=== PATIENT | female | born 1970 | race Caucasian/White ===

== ENCOUNTER → 2017-04-14 | Outpatient (CLI) | payer OTHER ==
[~2017-04-14] MED LIST: BUSP10TA PO; CITA40TA5 PO; PRIMIDONE PO; TOPIRAMATE PO
== END | disposition home or self-care (01) ==
LOC: STAR 15:43
PROVIDERS: ATTEND Obstetrics & Gynecology Female Pelvic Medicine and Reconstructive Surgery
DX: Z02.9 Encounter for administrative examinations, unspecified (principal)

== ENCOUNTER 2017-04-18 09:26 | Day surgery (SDC) | payer OTHER ==
[~2017-04-18] VITALS: Ht 157.5 cm; Wt 74.0 kg
[~2017-04-18 09:26] MED LIST changes: +BUPIVACAINE/PF-EPI 0.25% 1:200K ONE; +NEOMY/POLYMYXIN B GU IRR. 1 ML IRRIG ONE
[2017-04-18 09:57] VITALS: BP 117/73
[2017-04-18] MEDS ORDERED: LACTATED RINGERS 1,000 ML IV SCH (10:11)
[2017-04-18] MEDS ORDERED: MIDAZOLAM 1 MG/ML, 2ML ONE (10:51)
[2017-04-18] MEDS ORDERED: FENTANYL PF 250 MCG/5ML ONE (10:52)
[2017-04-18] MEDS ORDERED: NEOMY/POLYMYXIN B GU IRR. 1 ML IRRIG ONE (11:30)
[2017-04-18] MEDS ORDERED: PROPOFOL 10 MG/ML, 50ML ONE (11:33)
[2017-04-18] MEDS ORDERED: KETOROLAC 30 MG/1 ML ONE (11:33)
[2017-04-18] MEDS ORDERED: ONDANSETRON 2MG/ML, 2ML ONE (11:33)
[2017-04-18] MEDS ORDERED: CEFAZOLIN 1,000 MG ONE (11:33)
[2017-04-18] MEDS ORDERED: NEOSTIGMINE 1 MG/ML, 10ML ONE (11:33)
[2017-04-18] MEDS ORDERED: DEXAMETHASONE 4 MG/ML, 1ML ONE (11:33)
[2017-04-18] MEDS ORDERED: GLYCOPYRROLATE 0.2MG/1ML ONE (11:33)
[2017-04-18] MEDS ORDERED: BUPIVACAINE/PF-EPI 0.25% 1:200K INFIL ONE (11:45)
[2017-04-18] MEDS ORDERED: OXYcodone 5 MG/5 ML ORAL.SOL UDC PO PRN (12:00)
[2017-04-18] MEDS ORDERED: PROMETHAZINE 25 MG/ML, 1ML IV PRN (12:00)
[2017-04-18] MEDS ORDERED: ALBUTEROL/IPRATROPIUM 2.5MG/0.5MG, 3 ML NPPB PRN (12:00)
[2017-04-18] MEDS ORDERED: ACETAMINOPHEN 325 MG TABLET PO PRN ×2 (12:00→15:00)
[2017-04-18] MEDS ORDERED: FENTANYL PF 100 MCG/2ML ONE ×3 (12:37→13:30)
[2017-04-18] MEDS ORDERED: OXYcodone 5 MG/5 ML ORAL.SOL UDC ONE (13:03)
[2017-04-18] MEDS ORDERED: MEPERIDINE/PF 25MG/0.5ML ONE (13:03)
[2017-04-18] MEDS ORDERED: ACETAMINOPHEN 650 MG/20.3 ML UDC ONE (13:03)
[2017-04-18] MEDS: FENTANYL PF 100 MCG/2ML IV PRN ×4 (13:15→13:37)
[2017-04-18] MEDS ORDERED: MEPERIDINE/PF 25MG/0.5ML IVPush PRN (13:30)
[2017-04-18] MEDS ORDERED: HYDROmorphone 2 MG/ML, 1ML ONE ×2 (14:02→14:52)
[2017-04-18] MEDS ORDERED: HYDROmorphone 1 MG/ML, 1ML IV PRN (14:30)
[2017-04-18] MEDS ORDERED: ZOLPIDEM 5MG TABLET PO PRN (15:00)
[2017-04-18] MEDS ORDERED: HYDROcodone/APAP 5/325 TABLET PO PRN (15:00)
[2017-04-18] MEDS ORDERED: HYDROmorphone 2 MG/ML, 1ML IVPush PRN (15:00)
[2017-04-18] MEDS ORDERED: ONDANSETRON 2MG/ML, 2ML IVPush PRN (15:00)
[2017-04-18] MEDS ORDERED: OXYcodone/APAP 5/325MG TABLET PO PRN (15:00)
[2017-04-18] MEDS ORDERED: IBUPROFEN 600 MG TABLET PO SCH (16:00)
[2017-04-18] MEDS ORDERED: SIMETHICONE 80 MG CHEW TAB PO SCH (16:00)
[2017-04-18] MEDS ORDERED: DOCUSATE 100 MG CAPSULE PO SCH (21:00)
== END 2017-04-18 17:50 | disposition home or self-care (01) ==
LOC: OUT 09:26
PROVIDERS: ATTEND Obstetrics & Gynecology Female Pelvic Medicine and Reconstructive Surgery
DX: N80.0 Endometriosis of uterus (principal); N39.3 Stress incontinence (female) (male); N81.11 Cystocele, midline; N81.6 Rectocele; N81.5 Vaginal enterocele; Z88.2 Allergy status to sulfonamides
CPT/HCPCS: 57265; 57282; 57288; 58552; 88307; C1771; J0690; J1100; J1170; J1885; J2175; J2250; J2405; J2704; J2710; J3010; J7120; J3490

== ENCOUNTER 2017-04-19 14:39 | Emergency (ER) | payer OTHER ==
[~2017-04-19] VITALS: Ht 157.5 cm; Wt 76.5 kg
[~2017-04-19 14:39] MED LIST changes: -BUPIVACAINE/PF-EPI 0.25% 1:200K ONE; -NEOMY/POLYMYXIN B GU IRR. 1 ML IRRIG ONE
[2017-04-19 16:22] LABS: BLOOD UREA NITROGEN 5 mg/dL (7-18)
[2017-04-19 16:27] LABS: ASPARTATE AMINO TRANSFERASE 22 U/L (15-37)
[2017-04-19] MEDS ORDERED: ONDANSETRON 2MG/ML, 2ML IVPush ONE (18:30)
[2017-04-19] MEDS ORDERED: SODIUM CHLORIDE FLUSH 10ML SYR IVF ONE (18:30)
[2017-04-19] MEDS ORDERED: HYDROmorphone 1 MG/ML, 1ML IVPush PRN (18:30)
[2017-04-19] MEDS ORDERED: HYDROmorphone 1 MG/ML, 1ML ONE (18:39)
[2017-04-19] MEDS ORDERED: ONDANSETRON 2MG/ML, 2ML ONE (18:39)
[2017-04-19] MEDS ORDERED: OMNIPAQUE 350 MG/ML, 100ML BOTTLE ONE (19:21)
[2017-04-19 19:55] VITALS: BP 100/48
== END 2017-04-19 20:58 | disposition home or self-care (01) ==
LOC: ED 20:52
DX: R10.2 Pelvic and perineal pain (principal); Z90.710 Acquired absence of both cervix and uterus; Z88.2 Allergy status to sulfonamides
CPT/HCPCS: 36415; 74177; 80053; 81001; 85025; 87086; 96374; 96375; 99285; J1170; J2405; Q9967

== ENCOUNTER 2019-02-15 11:21 | Emergency (ER) | payer OTHER ==
[~2019-02-15] VITALS: Ht 157.5 cm; Wt 78.2 kg
[2019-02-15] MEDS ORDERED: MAALOX/HYOSCYAMINE/LIDOCAINE 45 ML BTL PO ONE (11:30)
[2019-02-15 11:55] LABS: BASOPHILS # (AUTO) 0.05 x10^3/uL (0-0.1); BASOPHILS % (AUTO) 1 % (0-1); EOSINOPHILS # (AUTO) 0.25 x10^3/uL (0-0.4); EOSINOPHILS % (AUTO) 3 % (1-7); LYMPHOCYTES % (AUTO) 23 % (22-44); MD NO; MEAN CORPUSCULAR HEMOGLOBIN 31.1 pg (27.0-34.8); MEAN CORPUSCULAR HGB CONC 33.5 g/dL (32.4-35.8); MEAN CORPUSCULAR VOLUME 92.8 fL (80-100); MEAN PLATELET VOLUME 8.5 fL (7.4-10.4); MONOCYTES # (AUTO) 0.47 x10^3/uL (0.2-0.8); MONOCYTES % (AUTO) 6 % (2-9); NEUTROPHILS # (AUTO) 5.15 x10^3/uL (1.8-6.8); NEUTROPHILS % (AUTO) 67 % (42-75); PLATELET COUNT 298 x10^3/uL (130-400); RED BLOOD COUNT 5.06 x10^6/uL (3.82-5.3)
[2019-02-15 12:12] LABS: ALBUMIN 3.8 g/dL (3.4-5.0); ANION GAP 3 mmol/L (5-15); CALCIUM 8.6 mg/dL (8.5-10.1); CHLORIDE 111 mmol/L (98-107)
[2019-02-15 12:17] LABS: ALANINE AMINOTRANSFERASE 22 U/L (12-78); ALKALINE PHOSPHATASE 95 U/L (45-117); BILIRUBIN,TOTAL 0.6 mg/dL (0.2-1.0); CREATININE 0.93 mg/dL (0.55-1.02); TOTAL PROTEIN 7.5 g/dL (6.4-8.2)
--- NOTE | 2019-02-15 14:36 | NUR ---
C/O BONILLA BODY ACHES ABD PAIN NECK PAIN ABD PAIN SOB EPIGASTRIC PAIN CHILS TALKING IN FULL SENTENCES NADN
[2019-02-15] MEDS ORDERED: MAALOX/HYOSCYAMINE/LIDOCAINE 45 ML BTL ONE (14:40)
--- NOTE | 2019-02-15 15:00 | NUR ---
Bedside SBAR report received from RNAnthony. Pt's urine sample being sent to lab. Pt received GI cocktail.
[2019-02-15 15:09] LABS: MICROSCOPIC NOT IND
[2019-02-15 15:13] LABS: CULTURE INDICATED? NO
[2019-02-15 15:40] VITALS: BP 103/64
--- NOTE | 2019-02-15 15:40 | NUR ---
Pt resting on samantha, at bedside. Pt states that pain is not improved after GI cocktail. VSS.
--- NOTE | 2019-02-15 16:18 | NUR ---
Dr. Alexandre at bedside to discuss ED findings and POC.
== END 2019-02-15 16:47 | disposition home or self-care (01) ==
LOC: ED 16:30
DX: K29.00 Acute gastritis without bleeding (principal); L04.0 Acute lymphadenitis of face, head and neck; M54.2 Cervicalgia; G89.29 Other chronic pain; F32.9 Major depressive disorder, single episode, unspecified; F17.200 Nicotine dependence, unspecified, uncomplicated; Z90.710 Acquired absence of both cervix and uterus
CPT/HCPCS: 36415; 74022; 80053; 81003; 83690; 85025; 86308; 86677; 93005; 99284

== ENCOUNTER 2019-11-30 06:46 | Emergency (ER) | payer OTHER ==
[~2019-11-30] VITALS: Ht 157.5 cm; Wt 79.0 kg
--- NOTE | 2019-11-30 07:02 | NUR ---
PT HERE TODAY FEELING SHAKY. 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 WORRIED IT IS A THYROID PROBLEM. WAS DX WITH NUNO'S TWO MONTHS AGO AND HAS BEEN ON LEVOTHYROXINE SINCE THEN. PT SITTING ON WHEELCHAIR CONNECTED TO MONITOR. MD RESIDENT AT BEDSIDE ASSESSING PT NOW.
--- NOTE | 2019-11-30 07:09 | NUR ---
PT ADDITIONALLY DESCRIBES FEELING SOB AND "CLAMMY." DENIES CP. CONNECTED TO HEART MONITOR. NOW RESTING ON GURNEY. NADN. VSS. PROVIDED WITH WARM BLANKET.
[2019-11-30 07:53] LABS: BASOPHILS # (AUTO) 0.03 x10^3/uL (0-0.1); BASOPHILS % (AUTO) 0 % (0-1); EOSINOPHILS % (AUTO) 3 % (1-7); LYMPHOCYTES # (AUTO) 1.67 x10^3/uL (1-3.4); LYMPHOCYTES % (AUTO) 21 % (22-44); MD NO; MEAN CORPUSCULAR HEMOGLOBIN 31.7 pg (27.0-34.8); MEAN CORPUSCULAR HGB CONC 34.1 g/dL (32.4-35.8); MEAN CORPUSCULAR VOLUME 93.1 fL (80-100); MEAN PLATELET VOLUME 7.9 fL (7.4-10.4); MONOCYTES % (AUTO) 6 % (2-9); NEUTROPHILS # (AUTO) 5.59 x10^3/uL (1.8-6.8); NEUTROPHILS % (AUTO) 70 % (42-75); PLATELET COUNT 291 x10^3/uL (130-400); RED BLOOD COUNT 4.87 x10^6/uL (3.82-5.3); RED CELL DISTRIBUTION WIDTH 13.8 % (9.6-15.2)
--- NOTE | 2019-11-30 07:53 | NUR ---
PT RESTING ON [place]. VSS. REINA.
[2019-11-30 08:02] LABS: ALANINE AMINOTRANSFERASE 25 U/L (12-78); ALBUMIN 3.8 g/dL (3.4-5.0); ANION GAP 7 mmol/L (5-15); CALCIUM 8.4 mg/dL (8.5-10.1); CHLORIDE 106 mmol/L (98-107); CREATININE 0.98 mg/dL (0.55-1.02)
[2019-11-30 08:06] LABS: ALKALINE PHOSPHATASE 88 U/L (45-117); BILIRUBIN,TOTAL 0.9 mg/dL (0.2-1.0); TOTAL PROTEIN 7.5 g/dL (6.4-8.2); TROPONIN I < 0.015 ng/mL (0.000-0.045)
[2019-11-30 08:48] VITALS: BP 112/58
--- NOTE | 2019-11-30 08:49 | NUR ---
PT RESTING ON HERBERTH. LATOSHA. VSS. DENIES NEEDS.
--- NOTE | 2019-11-30 09:20 | NUR ---
PT PROVIDED WITH WARM BLANKET.
--- NOTE | 2019-11-30 09:38 | NUR ---
RESIDENT AT BEDSIDE UPDATING PT ON POC.
--- NOTE | 2019-11-30 09:46 | NUR ---
PT AWARE OF DC PLAN. GETTING DRESSED NOW.
== END 2019-11-30 10:18 | disposition home or self-care (01) ==
LOC: ED 07:14
DX: F41.1 Generalized anxiety disorder (principal)
CPT/HCPCS: 36415; 80053; 84443; 84484; 85025; 85379; 93005; 99284

== ENCOUNTER 2020-01-23 10:29 | Emergency (ER) | payer OTHER ==
[~2020-01-23] VITALS: Ht 157.5 cm; Wt 81.0 kg
--- NOTE | 2020-01-23 10:48 | NUR ---
PT CAME IN CO OF RIGHT FLANK PAIN. HAS TROUBLE AMBUALTING BECAUSE OF THE PAIN. SEE MAR FOR INTERVETIONS. BLANKET PROVIDED
[2020-01-23] MEDS ORDERED: KETOROLAC 30 MG/1 ML IM ONE (11:00)
[2020-01-23] MEDS ORDERED: KETOROLAC 30 MG/1 ML ONE (11:05)
[2020-01-23 11:15] LABS: HCG UR SG 1.006 (1.003-1.030); MICROSCOPIC NOT IND
[2020-01-23 11:19] LABS: CULTURE INDICATED? NO
[2020-01-23 11:38] LABS: BASOPHILS # (AUTO) 0.07 x10^3/uL (0-0.1); BASOPHILS % (AUTO) 1 % (0-1); EOSINOPHILS # (AUTO) 0.39 x10^3/uL (0-0.4); EOSINOPHILS % (AUTO) 4 % (1-7); LYMPHOCYTES # (AUTO) 2.42 x10^3/uL (1-3.4); LYMPHOCYTES % (AUTO) 26 % (22-44); MD NO; MEAN CORPUSCULAR HEMOGLOBIN 31.8 pg (27.0-34.8); MEAN CORPUSCULAR HGB CONC 34.2 g/dL (32.4-35.8); MEAN CORPUSCULAR VOLUME 93.2 fL (80-100); MEAN PLATELET VOLUME 8.6 fL (7.4-10.4); MONOCYTES # (AUTO) 0.55 x10^3/uL (0.2-0.8); MONOCYTES % (AUTO) 6 % (2-9); NEUTROPHILS # (AUTO) 5.76 x10^3/uL (1.8-6.8); NEUTROPHILS % (AUTO) 63 % (42-75); PLATELET COUNT 299 x10^3/uL (130-400); RED BLOOD COUNT 4.82 x10^6/uL (3.82-5.3); RED CELL DISTRIBUTION WIDTH 14.3 % (9.6-15.2)
[2020-01-23 11:53] LABS: ALBUMIN 3.7 g/dL (3.4-5.0); ANION GAP 5 mmol/L (5-15); CHLORIDE 108 mmol/L (98-107)
[2020-01-23 12:04] LABS: ALANINE AMINOTRANSFERASE 28 U/L (12-78); ALKALINE PHOSPHATASE 102 U/L (45-117); BILIRUBIN,TOTAL 0.2 mg/dL (0.2-1.0); CALCIUM 8.7 mg/dL (8.5-10.1); CREATININE 1.25 mg/dL (0.55-1.02); TOTAL PROTEIN 7.6 g/dL (6.4-8.2)
[2020-01-23 13:03] VITALS: BP 97/55
[2020-01-23] MEDS ORDERED: CYCLOBENZAPRINE 10 MG TABLET ONE (15:18)
[2020-01-23] MEDS ORDERED: HYDROcodone/APAP 5/325 TABLET ONE (15:19)
--- NOTE | 2020-01-23 15:23 | NUR ---
PT CO OF PAIN. MD NOTIFIED. SEE MAR FOR INTERVENTIONS
[2020-01-23] MEDS ORDERED: CYCLOBENZAPRINE 10 MG TABLET PO ONE (15:30)
[2020-01-23] MEDS ORDERED: HYDROcodone/APAP 5/325 TABLET PO ONE (15:30)
== END 2020-01-23 15:53 | disposition home or self-care (01) ==
LOC: EDBD 10:29 → ED 15:15
DX: N23 Unspecified renal colic (principal); Z90.710 Acquired absence of both cervix and uterus
CPT/HCPCS: 36415; 76770; 80053; 81003; 81025; 83690; 85025; 96372; 99284; J1885

== ENCOUNTER 2020-02-25 06:21 | Emergency (ER) | payer OTHER ==
[~2020-02-25] VITALS: Ht 157.5 cm; Wt 81.0 kg
[2020-02-25 06:38] VITALS: BP 119/54
--- NOTE | 2020-02-25 07:00 | NUR ---
REPORT RECEIVED FROM ULISES BAKER. [facility]
[2020-02-25 08:11] LABS: RAPID INFLUENZA A Negative (Negative); RAPID INFLUENZA B Negative (Negative)
--- NOTE | 2020-02-25 08:23 | NUR ---
TASK RN: Patient/Caregiver given discharge instructions and they have confirmed that they understand the instructions. Patient ambulatory with steady gait. PT LEFT WITH ALL PERSONAL BELONGINGS.
== END 2020-02-25 08:23 | disposition home or self-care (01) ==
LOC: ED 06:59
DX: B34.9 Viral infection, unspecified (principal); Z20.828 Contact with and (suspected) exposure to other viral communicable diseases; J45.909 Unspecified asthma, uncomplicated
CPT/HCPCS: 71045; 87400; 99284

== ENCOUNTER → 2020-05-26 | Outpatient (CLI) | payer OTHER ==
[2020-05-26 16:48] LABS: BASOPHILS # (AUTO) 0.04 x10^3/uL (0-0.1); BASOPHILS % (AUTO) 1 % (0-1); EOSINOPHILS # (AUTO) 0.34 x10^3/uL (0-0.4); EOSINOPHILS % (AUTO) 5 % (1-7); LYMPHOCYTES % (AUTO) 35 % (22-44); MD NO; MEAN CORPUSCULAR HEMOGLOBIN 31.2 pg (27.0-34.8); MEAN CORPUSCULAR HGB CONC 33.5 g/dL (32.4-35.8); MEAN CORPUSCULAR VOLUME 93.3 fL (80-100); MEAN PLATELET VOLUME 8.4 fL (7.4-10.4); MONOCYTES # (AUTO) 0.47 x10^3/uL (0.2-0.8); MONOCYTES % (AUTO) 7 % (2-9); NEUTROPHILS # (AUTO) 3.53 x10^3/uL (1.8-6.8); NEUTROPHILS % (AUTO) 53 % (42-75); PLATELET COUNT 291 x10^3/uL (130-400); RED BLOOD COUNT 4.81 x10^6/uL (3.82-5.3); RED CELL DISTRIBUTION WIDTH 13.7 % (9.6-15.2)
== END | disposition home or self-care (01) ==
LOC: LAB 16:18
PROVIDERS: ATTEND Physician Assistant Surgical
DX: M25.571 Pain in right ankle and joints of right foot (principal); M79.671 Pain in right foot
CPT/HCPCS: 36415; 85025; 85651; 86140

== ENCOUNTER 2020-12-30 06:43 | Emergency (ER) | payer OTHER ==
[~2020-12-30] VITALS: Ht 157.5 cm; Wt 78.0 kg
[2020-12-30] MEDS ORDERED: KETOROLAC 30 MG/1 ML IM ONE (07:00)
--- NOTE | 2020-12-30 07:00 | NUR ---
Late entry summary note due to patient care: Pt was on way to work this AM when she slipped on ice in her garage. Pt is able to walk but states pain. Pt given ice for right knee and medicated for pain. Pt connected to BP and O2 monitors. Call light in reach, phone in hand.
[2020-12-30] MEDS ORDERED: KETOROLAC 30 MG/1 ML ONE (07:07)
--- NOTE | 2020-12-30 07:18 | NUR ---
Pt to imaging.
--- NOTE | 2020-12-30 08:16 | NUR ---
This RN assisted pt to bathroom with wheelchair. "I don't want to put any weight on it, I don't know what's wrong with it."
[2020-12-30] MEDS ORDERED: NEOSPORIN OINT. PKT 1 PACKET ONE (08:22)
[2020-12-30 09:28] VITALS: BP 99/54
--- NOTE | 2020-12-30 09:29 | NUR ---
Patient/Caregiver given discharge instructions and they have confirmed that they understand the instructions. Patient ambulatory with steady gait.
== END 2020-12-30 09:30 | disposition home or self-care (01) ==
LOC: ED 08:29
DX: S50.01XA Contusion of right elbow, initial encounter (principal); S80.01XA Contusion of right knee, initial encounter; J45.909 Unspecified asthma, uncomplicated; E03.9 Hypothyroidism, unspecified; F17.210 Nicotine dependence, cigarettes, uncomplicated; Z88.2 Allergy status to sulfonamides; W01.0XXA Fall on same level from slipping, tripping and stumbling without subsequent striking against object, initial encounter; Y93.89 Activity, other specified; Y92.89 Other specified places as the place of occurrence of the external cause; Y99.8 Other external cause status
CPT/HCPCS: 73080; 73564; 96372; 99284; J1885